=== PATIENT | female | born 2000 | race Two or more races ===

== ENCOUNTER 2021-01-05 13:18 | Emergency (ER) | payer OTHER ==
[~2021-01-05] VITALS: Ht 157.5 cm; Wt 55.0 kg
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
[2021-01-05 13:37] VITALS: BP 140/78
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
== END 2021-01-05 16:32 | disposition home or self-care (01) ==
LOC: ER 13:18
DX: Z04.1 Encounter for examination and observation following transport accident (principal); R10.9 Unspecified abdominal pain
CPT/HCPCS: 70450; 72125; 72128; 74176; 99285-25